=== PATIENT | male | born 1955 | race Caucasian/White ===

== ENCOUNTER 2019-03-30 02:10 | Emergency (ER) | payer MEDICARE ==
--- NOTE | 2019-03-30 02:16 | ED Physician Documentation ---
General Adult - HISTORIAN Historian: patient - HPI Stated Complaint: cough and woke feeling like his throat was tight Chief Complaint: Cough/ Upper Respiratory Onset: hours (1) Timing: better Severity: mild Further Comments: yes (Per he has had a "cold" sinus infection/bronchitis for a week and this am early woke with they felt like a spasm of his throat or vocal cords. He states after maybe less than one min it went away and he is feeling better but they wanted to be checked out. He has been on antibitotics and he has no current shortness of air or feeling that his throat is swollen he did not take any OTC meds) - ROS CONST: recent illness. denies: fever EYES/ENT: nasal drainage, nasal congestion. denies: sore throat CVS/RESP: cough (resolved ). denies: chest pain MS/SKIN/LYMPH: denies: rash NEURO/PSYCH: denies: headache - PAST HX Past History: hypertension Immunizations: UTD Allergies/Adverse Reactions: Allergies Allergy/AdvReac Type Severity Reaction Status Date / Time latex Allergy Rash Verified 03/30/19 02:27 Sulfa (Sulfonamide Allergy Rash Verified 03/30/19 02:27 Antibiotics) Home Medications: Ambulatory Orders Medication Instructions Recorded Amoxicillin/Potassium Clav 1 tab PO BID 03/30/19 [Amox-Clav 875-125 mg Tablet] Atorvastatin Calcium [Lipitor] 10 mg PO DAILY 03/30/19 Benzonatate [Tessalon Perles] 1 cap PO QID 03/30/19 Cetirizine HCl [24Hour Allergy] 10 mg PO DAILY 03/30/19 Fluticasone Propionate 110 Mcg 1 puff NA BID 03/30/19 [Flovent Hfa] Lisinopril 1 tab PO DAILY 03/30/19 Metoprolol Tartrate [Lopressor] 25 mg PO DAILY 03/30/19 amLODIPine BESYLATE [Norvasc] 2 tab PO DAILY 03/30/19 - SOCIAL HX Smoking History: non-smoker Alcohol Use: none Drug Use: none - FAMILY HX Family History: No - REVIEWED ASSESSMENTS Nursing Assessment Reviewed: Yes Vitals Reviewed: Yes Progress - Progress Progress: 0254: states feels better after neb. Lungs remain clear. He and spouse are asking about a possible epi pen for this happening again. Discussed the meds and RX they state understanding DG General Adult Physical Exam - PHYSICAL EXAM GENERAL APPEARANCE: no distress EENT: eye inspection normal, ENT inspection normal, pharynx normal, no signs of dehydration NECK: normal inspection RESPIRATORY: no resp distress, chest non-tender, breath sounds normal CVS: reg rate & rhythm, heart sounds normal ABDOMEN: soft, normal bowel sounds, no distension BACK: normal inspection, no CVA tenderness SKIN: warm/dry EXTREMITIES: non-tender, normal range of motion, no evidence of injury, no edema NEURO: oriented X3 Discharge Clincal Impression: Sleep related laryngospasm Comments: 1. Continue meds - call PCP in am about the incident 2. ProAir 2 puffs every 4 hours as needed 3. Return to PCP in 2-4 days 4. Return to ER for any increased concerns Condition: Stable Disposition: 01 HOME, SELF-CARE Decision to Admit: NO Date of Decison to Admit: 03/30/19 Decision Time: 03:10
[2019-03-30] MEDS: methylPREDNISolone SOD SUCC 125 MG/2 ML VIAL IM ONE (02:42)
[2019-03-30] MEDS: IPRATROPIUM/ALBUTEROL SULFATE 3 ML AMPUL.NEB NEB ONE (02:43)
--- NOTE | 2019-03-30 03:04 | Diagnostic Imaging Report ---
PATIENT MR#: [id number] PATIENT PATIENT NAME: EUGENIO JOYCE DATE OF : 1955 REFERRING PHYSICIAN: Nellie Grey EXAM DATE: 03/30/2019 ACCESSION NUMBER: [id number] EXAM DESCRIPTION: CHEST 2VIEW Chest two views History: Cough Findings: Mild lingular infiltrate is present. There is no parapneumonic effusion. Heart size and pulmonary vascularity are normal. Impression: Probable lingular bronchopneumonia. Recommend radiographic follow-up. Read by: Dr. Gregory Cabral Transcribed by: Transcribed Date: Electronically signed by: Dr. Gregory Cabral Date signed: 03/30/2019 3:03:34 AM
[2019-03-30 06:08] VITALS: BP 132/76
== END 2019-03-30 03:15 | disposition home or self-care (01) ==
LOC: ED 02:10
DX: J38.5 Laryngeal spasm (principal)
CPT/HCPCS: 71046; 94640; 96372; 99282; 99284; J2930